=== PATIENT | female | born 1965 | race Caucasian/White ===

== ENCOUNTER 2017-04-07 15:44 | Inpatient (IN) | payer BC ==
[~2017-04-07] VITALS: Ht 165.1 cm; Wt 122.5 kg
[2017-05-11] VITALS (13 sets, daily range): BP systolic 115–141; BP diastolic 44–78; PULSE 68–96; TEMP 97.8–98.7
[2017-05-11 06:08] LABS: HEMOGLOBIN 13.1 g/dl (12.5-16.0); MEAN CELL VOLUME 90 fl (80.0-100.0); MEAN CORPUSCULAR HEMOGLOBIN 29 pg (27.0-31.0); MEAN CORPUSCULAR HGB CONC 33 g/dl (33.0-37.0); MEAN PLATELET VOLUME 10.3 fl (7.4-10.4); PLATELET COUNT 227 K/mm3 (130-400); RED BLOOD COUNT 4.45 M/mm3 (4.10-5.30); WHITE BLOOD COUNT 10.6 K/mm3 (4.8-10.8)
[2017-05-11 06:21] LABS: CREATININE, serum 1.29 mg/dL (0.52-1.25); POTASSIUM 4.1 mmol/L (3.4-5.0)
[2017-05-11] MEDS ORDERED: AMBIEN 10MG10 MG PO (06:30)
[2017-05-11] MEDS ORDERED: GLUCOPHAGE1000 MG PO (06:31)
[2017-05-11] MEDS ORDERED: PRINZIDE 12.5 M1 TA1 PO (06:31)
[2017-05-11] MEDS ORDERED: MOBIC15 MG PO (06:32)
[2017-05-11] MEDS ORDERED: NORCO 325 MG-7.1 TAB PO (06:32)
[2017-05-12 02:33] VITALS: BP 95/46; PULSE 83; TEMP 98.6
[2017-05-12 06:33] VITALS: BP 126/55; PULSE 87; TEMP 98.6
[2017-05-12 07:27] LABS: BASO % 0.3 % (0.0-2.0); EOS % 0.3 % (0-4.0); GRAN # 10.7 (1.4-6.5); GRAN % 79.4 % (42.2-75.2); LYMPH # 1.9 (1.2-3.4); LYMPH % 13.9 % (20.0-51.0); MEAN CELL VOLUME 91 fl (80.0-100.0); MEAN CORPUSCULAR HGB CONC 33 g/dl (33.0-37.0); MEAN PLATELET VOLUME 10.9 fl (7.4-10.4); MONO # 0.8 (0.1-0.6); MONO % 5.7 % (1.7-9.3); PLATELET COUNT 193 K/mm3 (130-400); RED BLOOD COUNT 3.91 M/mm3 (4.10-5.30); WHITE BLOOD COUNT 13.4 K/mm3 (4.8-10.8)
[2017-05-12 07:40] LABS: HEMATOCRIT 35.7 % (37.0-47.0); HEMOGLOBIN 11.6 g/dl (12.5-16.0); MEAN CORPUSCULAR HEMOGLOBIN 30 pg (27.0-31.0)
[2017-05-12 07:43] LABS: CALCIUM 9.4 mg/dL (8.4-10.2); POTASSIUM 4.2 mmol/L (3.4-5.0)
[2017-05-12 10:09] VITALS: BP 126/55; PULSE 87; TEMP 98.6
[2017-05-12 10:13] VITALS: BP 133/60; PULSE 73; TEMP 98.6
[2017-05-12 13:43] VITALS: BP 128/65; PULSE 80; TEMP 97.8
== END 2017-05-12 14:25 | disposition home or self-care (01) | DRG 614 ==
LOC: INPTSU 05-11 05:09 → SURG 05-11 07:30
PROVIDERS: Nurse Anesthetist, Certified Registered; Urology
PROC: 8E0W4CZ Robotic Assisted Procedure of Trunk Region, Percutaneous Endoscopic Approach (ICD-10-PCS; 2017-05-11)
PROC: 0GT24ZZ Resection of Left Adrenal Gland, Percutaneous Endoscopic Approach (ICD-10-PCS; principal; 2017-05-11 07:30)
DX: D35.02 Benign neoplasm of left adrenal gland (principal); E24.8 Other Cushing's syndrome; I10 Essential (primary) hypertension; Z87.891 Personal history of nicotine dependence
CPT/HCPCS: A4314; J0690; J1100; J1170; J1815; J2405; J2704; J2710; J7050; J7120

== ENCOUNTER 2023-08-09 10:27 | Day surgery (SDC) | payer MEDICARE ==
[~2023-08-09] VITALS: Ht 165.1 cm; Wt 131.0 kg
[2023-08-09] VITALS (8 sets, daily range): BP systolic 119–159; BP diastolic 60–79; PULSE 78–91; TEMP 97–97.8
[~2023-08-09 10:27] MED LIST: AMBIEN 10MG10 MG PO; GLUCOPHAGE1000 MG PO; LR 1,000 ML IV SCH; MOBIC15 MG PO; NORCO 325 MG-7.1 TAB PO; PRINZIDE 12.5 M1 TA1 PO
[2023-08-09] MEDS ORDERED: PROTONIX 40MG T40 MG PO (10:59)
[2023-08-09] MEDS ORDERED: PRINIVIL40 MG PO (10:59)
--- NOTE | 2023-08-09 11:27 | NUR ---
The patient ambulated back to Long 2 independently using a steady gait and appeared to tolerate the activity well. Vital signs obtained. Consent signed. 18G IV started in left wrist with one stick, LR infusing without redness. Assessment completed. Home medications reconcilled. Call light is within reach. Warm blanket provided. Elroy Eddy, brought back to be at her bedside. Denies any further needs at this time.
[2023-08-09] MEDS ORDERED: Rocuronium 50 MG/5 ML Multi-Dose VIAL ONE (12:10)
[2023-08-09] MEDS ORDERED: Succinylcholine PF 200 MG/10 ML SYRINGE IV ONE (12:10)
[2023-08-09] MEDS ORDERED: fentaNYL 50 MCG/ML 2 ML VIAL ONE ×2 (12:10→14:02)
[2023-08-09] MEDS ORDERED: Lidocaine PF 2% (20 MG/ML) 5 ML VIAL ONE (12:10)
[2023-08-09] MEDS ORDERED: ULTRAM 50MG TAB50 MG PO (12:36)
[2023-08-09] MEDS ORDERED: Ondansetron 4 MG/2 ML VIAL IV PRN ×2 (12:45→13:15)
[2023-08-09] MEDS ORDERED: NS 20 ML IV ONE (12:49)
[2023-08-09] MEDS ORDERED: Ondansetron 4 MG/2 ML VIAL ONE (12:49)
[2023-08-09] MEDS ORDERED: dexAMETHasone 10 MG/ML VIAL ONE (12:49)
[2023-08-09] MEDS ORDERED: Lidocaine PF 2% (20 MG/ML) 10 ML POLY AMP IM ONE ×2 (12:53)
[2023-08-09] MEDS ORDERED: ePHEDrine 50 MG/ML VIAL ONE (13:09)
[2023-08-09] MEDS ORDERED: fentaNYL 50 MCG/ML 2 ML VIAL IV PRN (13:15)
[2023-08-09] MEDS ORDERED: hydrALAZINE 20 MG/ML 1 ML VIAL IV PRN (13:15)
[2023-08-09] MEDS ORDERED: HYDROmorphone 2 MG/1 ML VIAL IV PRN (13:15)
[2023-08-09] MEDS ORDERED: Ketorolac 30 MG/ML VIAL ONE (13:24)
[2023-08-09] MEDS ORDERED: LR 1,000 ML IV ONE (13:33)
[2023-08-09] MEDS ORDERED: Topical Skin Adhesive 1 EACH (1 ML) TOP ONE (14:00)
--- NOTE | 2023-08-09 19:22 | NUR ---
1520: PATIENT TO BAY 2 FROM PACU. EYES CLOSED BUT OPENS EYES WHEN NAME CALLED. PATIENT DENIES ANY NAUSEA AND RATED PAIN 5/10. PATIENT DOES NOT WANT PAIN MEDICAITON AT THIS TIME. PATIENT TOLERATING ICE CHIPS AND DOES NOT WISH TO ADVANCE DIET AT THIS TIME. DRESSING TO ABD C/D/I AND CLOSED WITH SKIN GLUE. ABDOMINAL BINDER IN PLACE. RESTING IN COT. NO FURTHER NEEDS NOTED. DANA AT BEDSIDE. 1535: ALERT AND ORIENTED. VSS. BREATHING EVEN AND UNLABORED. PATIENT TOLERATING ICE CHIPS AND DENIES NAUSEA. DOES NOT WISH TO ADVANCE HER DIET AT THIS TIME. RATES PAIN 5/10 BUT DOES NOT WANT PAIN MEDICATION AT THIS TIME. ABDOMINAL BINDER C/D/I. NO FURTHER NEEDS NOTED. RESTING IN COT. CALL LIGHT IN REACH. DANA AT BEDSIDE.
--- NOTE | 2023-08-09 19:28 | NUR ---
1550: PATIENT ALERT AND ORIENTED. VSS. BREATHING EVEN AND UNLABORED. ABD BINDER C/D/I. TOLERATING ICE CHIPS DENIES NAUSEA. C/O PAIN DOES NOT WANT PAIN MEDICATION AT THIS TIME. DOES NOT WISH TO ADVANCE DIET AT THIS TIME. NO FRUTHER NEEDS NOTED. RESTING IN COT. CALL LIGHT IN REACH. DANA AT BEDSIDE.
--- NOTE | 2023-08-09 19:31 | NUR ---
1605: ALERT AND ORIENTED. VSS. BREATHING EVEN AND UNLABORED. DENIES NAUSEA. PATIENT REQUESTING PUDDING. ABD BINDER C/D/I. C/O PAIN AND REQUESTING PAIN MEDICATION ONCE PATIENT IS ABLE TO TOLERATE FOOD. NO FURTHER NEEDS NOTED. RESTING IN COT. CALL LIGHT IN REACH. DANA AT BEDSIDE.
--- NOTE | 2023-08-09 19:35 | NUR ---
1620: ALERT AND ORIENTED. VSS. BREATHING EVEN AND UNLABORED. PATIENT TOLERATING PUDDING AND DENIES NAUSEA. REQUESTING PAIN MEDICAIION AT THIS TIME. NO FURTHER NEEDS NOTED. RESTING IN COT. CALL LIGHT IN REACH. DANA AT BEDSIDE. 1627: PAIN MEDICATION GIVEN ORDERED.
--- NOTE | 2023-08-09 19:38 | NUR ---
1650: ALERT AND ORIENTED. VSS. BREATHING EVEN AND UNLABORED. PATIENT CONTINUES TO TOLERATED PUDDING AND DENIES NAUSEA. REQUSTING APPLE JUICE. PATIENT STATED PAIN IS IMPROVING. NO FURTHER NEEDS NOTED. RESTING IN COT. CALL LIGHT IN REACH. DANA AT BEDSIDE. 1720: IV DC'D AT THIS TIME BY ERMA JAVIER. YAYA ASSISTED PATIENT WITH DRESSSING. PATIENT AMBULATED TO BATHROOM X2 ASSIST. URINATED LARGE AMOUNT OF URINE. 1745: PATIENT AMBULATED FROM BATHROOM TO WHEELCHAIR X2 ASSIST. DISCHARGE EDUCATION COMPLETED AT THIS TIME. PATIENT STATED UNDERSTANDING OF HOME AND FOLLOW-UP CARE. PATIENT EDUCATED ON PAIN MEDICATION MANAGMENT AND WHEN HER NEXT DOSE OF PAIN MEDICATION IS DUE. PATIENT STATED UNDERSTANDING. DISCHARGE PAPERWORK GIVEN TO PATIENT. 1747: PATIENT OFF UNIT PER WHEELCHAIR AT THIS TIME. PATIENT DISCHARGED TO HOME WITH DANA PER PERSONAL VEHICLE.
== END 2023-08-09 17:47 | disposition home or self-care (01) ==
LOC: SDCO 10:27
DX: K81.1 Chronic cholecystitis (principal); K82.8 Other specified diseases of gallbladder; K42.0 Umbilical hernia with obstruction, without gangrene; E66.01 Morbid (severe) obesity due to excess calories; K21.9 Gastro-esophageal reflux disease without esophagitis; Z79.899 Other long term (current) drug therapy; Z87.891 Personal history of nicotine dependence
CPT/HCPCS: C1781; J0690; J1100; J1170; J1885; J2405; J2704; J3010; J7120